=== PATIENT | male | born 1975 | race Two or more races ===

== ENCOUNTER 2019-04-13 18:32 | Emergency (ER) | payer SELFPAY ==
[2019-04-13] MEDS ORDERED: Ketorolac 60 MG/2 ML SDV IM ONE (18:57)
--- NOTE | 2019-04-13 19:00 | EDM.PDOC ---
ED HPI GENERAL MEDICAL PROBLEM - General Chief Complaint: ENT Problem Stated Complaint: TOOTHACHE Time Seen by Provider: 04/13/19 18:45 Source of Information: Reports: Patient, RN Notes Reviewed History Limitations: Reports: No Limitations - History of Present Illness INITIAL COMMENTS - FREE TEXT/NARRATIVE: Patient is a 43-year-old male who presents to the ED for evaluation of a dental complaint. Patient states that last night he was eating, and he bit into an onion, when he felt a piece go in between 2 of his upper left back teeth. He used floss to dislodge the onion, but he notes that after that he had some pain and swelling to the upper outer gumline. He states that chewing on that side of the mouth hurts, he denies any fevers or chills, difficulty swallowing. He states that he took 600 mg ibuprofen this morning, and another 600 mg this afternoon. He tried some of the tooth numbing gel as well, this did not provide much relief. The patient states that he recently got dental insurance through work, so he is working on being seen by a dentist. He states that he does have an allergy to penicillins, as he states he broke out in a diffuse rash , but he states he has taken amoxicillin in the past safely. Upper Tooth/Teeth Pain Score (Numeric/FACES): 8 - Related Data Allergies Allergy/AdvReac Type Severity Reaction Status Date / Time Penicillins Allergy Rash Verified 04/13/19 18:43 Home Meds: Home Meds Amoxicillin/Clavulanate K [Augmentin 875-125 MG] 1 tab PO BID #14 tablet [Rx] Naproxen [Naprosyn] 500 mg PO Q12HR #14 tab 04/13/19 [Rx] Past Medical History - Past Surgical History Dermatological Surgical History: Reports: Skin Graft Social & Family History - Tobacco Use Smoking Status *Q: Current Every Day Smoker Years of Tobacco use: 26 Packs/Tins Daily: 0.4 - Caffeine Use Caffeine Use: Reports: None - Recreational Drug Use Recreational Drug Use: No Recreational Drug Type: Reports: LSD (Acid), Marijuana/Hashish Other Recreational Drug Type: none for awhile as is on probation ED ROS ENT - Review of Systems Review Of Systems: See Below Constitutional: Denies: Fever, Chills HEENT: Reports: Dental Pain (L upper Jaw/gum). Denies: Throat Pain Respiratory: Denies: Shortness of Breath Cardiovascular: Denies: Chest Pain GI/Abdominal: Denies: Nausea, Vomiting Neurological: Denies: Headache ED EXAM, ENT - Physical Exam Exam: See Below Exam Limited By: No Limitations General Appearance: Alert, WD/WN, No Apparent Distress (pt appears to be in a moderate amount of pain) Eye Exam: Bilateral Eye: EOMI, Normal Inspection, PERRL Ears: Normal External Exam Nose: Normal Inspection, Normal Mucousa, No Blood Mouth/Throat: Normal Inspection, Normal Lips, Normal Oropharynx, Normal Teeth, Dental Pain (Upper left back jaw), Gum Swelling (Upper left outer jaw). No: Throat Swelling Head: Atraumatic, Normocephalic, Facial Swelling (Noted to Left cheek) Neck: Normal Inspection, Supple, Non-Tender, Full Range of Motion Respiratory/Chest: No Respiratory Distress, Lungs Clear, Normal Breath Sounds, No Accessory Muscle Use, Chest Non-Tender Cardiovascular: Normal Peripheral Pulses, Regular Rate, Rhythm, No Murmur Neurological: Alert, Oriented, Normal Cognition, No Motor/Sensory Deficits Psychiatric: Normal Affect, Normal Mood Skin: Warm, Dry, Intact, Normal Color, No Rash Course - Vital Signs Last Recorded V/S: Last Vital Signs Temp 98.5 F 04/13/19 18:48 Pulse 68 04/13/19 18:48 Resp 20 04/13/19 18:48 BP 122/86 04/13/19 18:48 Pulse Ox 98 04/13/19 18:48 - Orders/Labs/Meds Meds: Medications Discontinued Medications Generic Name Dose Route Start Last Admin Trade Name Cj PRN Reason Stop Dose Admin Ketorolac Tromethamine 60 mg 04/13/19 18:57 04/13/19 19:18 Toradol IM 04/13/19 18:58 60 mg ONETIME ONE Administration - Re-Assessments/Exams Free Text/Narrative Re-Assessment/Exam: 04/13/19 19:04 Patient presents to the ED for evaluation of his dental complaint. He will be started on a course of Augmentin, and will be given some tablets and Naprosyn for outpatient management. Patient will be given an injection of Toradol in the ER for pain management. He will be discharged home with other general recommendations, and a list of dentists for referral. Departure - Departure Time of Disposition: 18:58 Disposition: Home, Self-Care 01 Condition: Fair Clinical Impression: Pain, dental - Discharge Information *PRESCRIPTION DRUG MONITORING PROGRAM REVIEWED*: No *COPY OF PRESCRIPTION DRUG MONITORING REPORT IN PATIENT JOE: No Prescriptions: Naproxen [Naprosyn] 500 mg PO Q12HR #14 tab Amoxicillin/Clavulanate K [Augmentin 875-125 MG] 1 tab PO BID #14 tablet Instructions: Diet and Dental Disease Referrals: PCP,None [Primary Care Provider] - Forms: ED Department Discharge Additional Instructions: You have been evaluated in the ED for your dental pain. You have been provided with a script for Augmentin. This [place] sent to [facility] in [facility] [employer] [facility]. Please take this medication as directed. (1 tab twice daily for 7 days or until gone). This antibiotic can cause diarrhea, recommend that you start a probiotic while taking this medication. Aleve provides good pain relief for dental pain. Please take 1-2 tabs twice daily as needed for pain. You were given a prescription for Naprosyn, Please take 1 tab every 12 hours for pain relief. You may use hot pack/ ice packs to the affected area as tolerated in 15-20 minute intervals. You will ultimately need to find a dentist to provide definitive management of your dental pain. The [facility] in [place], [place], , is a clinic that has been known to take people that do not have dental insurance, and may provide payment plans. You might want to check with this provider, regarding your dental pain. Please return to the ED if your symptoms change or worsen. Sepsis Event Note - Evaluation Sepsis Screening Result: No Definite Risk - Focused Exam Vital Signs: Vital Signs Temp Pulse Resp BP Pulse Ox 04/13/19 18:48 98.5 F 68 20 122/86 98 Date Exam was Performed: 04/13/19 Time Exam was Performed: 21:16
== END 2019-04-13 19:20 | disposition home or self-care (01) ==
LOC: JD.ED 18:32
DX: K08.89 Other specified disorders of teeth and supporting structures (principal); F17.210 Nicotine dependence, cigarettes, uncomplicated; Z88.0 Allergy status to penicillin
CPT/HCPCS: 96372; 99282; J1885

== ENCOUNTER 2021-02-08 13:53 | Emergency (ER) | payer BC ==
--- NOTE | 2021-02-08 15:54 | EDM.PDOC ---
ED HPI GENERAL MEDICAL PROBLEM - General Chief Complaint: Respiratory Problem Stated Complaint: BODY ACHE\FEVER POSS COVID + Time Seen by Provider: 02/08/21 15:21 Source of Information: Reports: Patient, RN Notes Reviewed History Limitations: Reports: No Limitations - History of Present Illness INITIAL COMMENTS - FREE TEXT/NARRATIVE: Patient is a 45-year-old male who presents to the ER for his possible COVID-19. States he has put much all the symptoms of COVID-19 and his fiance and child did test positive for Covid last night. States he has been ill since may be or Tuesday. Complaining of feeling feverish, chills, body aches, cough and slight shortness of breath with associated nausea/vomiting/diarrhea. Denying any other past medical history that would put him at any risk factors. Generalized Pain Score (Numeric/FACES): 5 - Related Data Allergies Allergy/AdvReac Type Severity Reaction Status Date / Time Penicillins Allergy Rash Verified 02/08/21 14:49 Home Meds: Home Meds Ondansetron [Zofran ODT] 4 mg PO Q8H PRN #15 tab.dis 02/08/21 [Rx] Past Medical History - Past Health History Medical/Surgical History: Denies Medical/Surgical History - Past Surgical History Dermatological Surgical History: Reports: Skin Graft Social & Family History - Tobacco Use Tobacco Use Status *Q: Never Tobacco User Second Hand Smoke Exposure: No - Caffeine Use Caffeine Use: Reports: None - Recreational Drug Use Recreational Drug Use: No ED ROS GENERAL - Review of Systems Review Of Systems: Comprehensive ROS is negative, except as noted in HPI. ED EXAM, GENERAL - Physical Exam Exam: See Below Exam Limited By: No Limitations General Appearance: Alert, WD/WN, No Apparent Distress Respiratory/Chest: No Respiratory Distress, Lungs Clear, Normal Breath Sounds, No Accessory Muscle Use, Chest Non-Tender Cardiovascular: Normal Peripheral Pulses, Regular Rate, Rhythm, No Edema GI/Abdominal: Normal Bowel Sounds, Soft, Non-Tender, No Distention, No Mass Extremities: Normal Inspection, Normal Capillary Refill Neurological: Alert, Oriented, Normal Cognition, No Motor/Sensory Deficits Psychiatric: Normal Affect, Normal Mood Skin Exam: Warm, Dry, Intact, Normal Color, No Rash Course - Vital Signs Last Recorded V/S: Last Vital Signs Temp 101.6 F H 02/08/21 14:48 Pulse 87 02/08/21 14:48 Resp 18 02/08/21 14:48 BP 155/99 H 02/08/21 14:48 Pulse Ox 96 02/08/21 14:48 - Orders/Labs/Meds Labs: Laboratory Tests 02/08/21 Range/Units 14:50 Influenza Type A RNA Negative (NEGATIVE) Influenza Type B RNA Negative (NEGATIVE) SARS-CoV-2 RNA (AUTUMN) Positive H (NEGATIVE) - Re-Assessments/Exams Free Text/Narrative Re-Assessment/Exam: 02/08/21 15:53 Covid/flu swab were obtained at the time of triage. The influenza swab was negative but the COVID-19 swab did come back positive. We will go ahead and discharge the patient home with general recommendations. He will need to be off work for 10 days from this last Tuesday for sure. Departure - Departure Time of Disposition: 15:54 Disposition: Home, Self-Care 01 Condition: Good Clinical Impression: COVID-19 - Discharge Information *PRESCRIPTION DRUG MONITORING PROGRAM REVIEWED*: No *COPY OF PRESCRIPTION DRUG MONITORING REPORT IN PATIENT JOE: No Prescriptions: Ondansetron [Zofran ODT] 4 mg PO Q8H PRN #15 tab.dis PRN Reason: Nausea Instructions: Prone Position Therapy, 10 Things You Can Do to Manage Your COVID-19 Symptoms at Home - [facility] (10/10/2020) Referrals: PCP,None [Primary Care Provider] - Forms: ED Department Discharge, ED Return to Work/School Form Additional Instructions: You were seen in the ER today for ongoing and/or worsening respiratory symptoms. You were tested for influenza and Covid at today's visit, and your COVID-19 screen did come back positive. Oxygen levels were acceptable at about 94-95% on room air. Please try to increase your oral fluid intake, and eat multiple small meals throughout the day, to keep yourself healthy. You need to keep yourself nourished in order to fight off this disease. You can try a liquid diet like gatorade/powerade as well to get your electrolytes. You may take 500 mg Tylenol every hours 6 hours for pain/fever relief. Do not exceed 4000 mg Tylenol in a 24-hour time span. However, running a fever is your body's natural response to illness, and it allows the body to develop antibodies to disease, we are recommending trying to limit the use of Tylenol as much as possible to allow your body's natural immune response. Recommend you obtain a pulse oximeter and monitor your oxygen levels at home, you should place the monitor on your finger, and sit in a calm, quiet position for a few minutes and then record the number that is on the screen. If this consistently below 90% on room air without movement, this would be cause for concern to come back to the hospital for further management of your COVID-19 disease. Please follow all guidance set forth from [facility], regarding isolation purposes for your disease process. General isolation times are 10 days from when you started being symptomatic. Sepsis Event Note (ED) - Focused Exam Vital Signs: Vital Signs Temp Pulse Resp BP Pulse Ox 02/08/21 14:48 101.6 F H 87 18 155/99 H 96
== END 2021-02-08 16:18 | disposition home or self-care (01) ==
LOC: JD.ED 13:53
DX: U07.1 COVID-19 (principal); Z88.0 Allergy status to penicillin
CPT/HCPCS: 0240U; 99283; U0002

== ENCOUNTER 2024-03-21 16:42 | Emergency (ER) | payer OTHER | END 2024-03-21 19:15 | disposition left against medical advice (07) | LOC: JD.ED 16:42 | DX: Z53.21 Procedure and treatment not carried out due to patient leaving prior to being seen by health care provider (principal) ==

== ENCOUNTER 2024-03-22 06:59 | Emergency (ER) | payer OTHER | END 2024-03-22 07:41 | disposition home or self-care (01) | LOC: JD.ED 06:59 | DX: K04.7 Periapical abscess without sinus (principal); Z88.0 Allergy status to penicillin; Z79.899 Other long term (current) drug therapy | CPT/HCPCS: 99283 ==